=== PATIENT | female | born 1950 | race Caucasian/White ===

== ENCOUNTER 2023-02-18 13:18 | Outpatient (REF) | payer MEDICARE, OTHER, SELFPAY ==
--- NOTE | 2023-02-18 14:30 | PAPFT_PTH ---
PATIENT: Sanjuana Knox LOC: [facility] U#:[id number] AGE/SX: 72/F ROOM: RE02/18/[address]: Desiree Sierra DO : 1950 BED: DIS: 02/18/2023 SPEC #: [id number] RECD: 02/20/23 07:44 STATUS: TOM REQ #: [id number] MICHAEL: 02/18/23 14:[address]: Desiree Sierra DEPT: [facility] Cytology RECD BY: Masha Sparks ENTERED: 02/20/23 07:45 SP TYPE: PAPFT OTHR DR: Camilla Bustos Tissues: 1 - CX/ENDOCX FOR PAP SMEARS Procedures: PAP THIN PREP/[facility] Screening HPV DNA PROBE Comments: [id number]
== END 2023-02-18 13:19 | disposition home or self-care (01) ==
LOC: LBN 13:18
PROVIDERS: PCP Family Medicine; Visit Provider Obstetrics & Gynecology
DX: Z11.51 Encounter for screening for human papillomavirus (HPV) (principal); Z01.419 Encounter for gynecological examination (general) (routine) without abnormal findings
CPT/HCPCS: 88142; 87624